=== PATIENT | male | born 1980 | race Caucasian/White ===

== ENCOUNTER 2019-06-14 09:42 | Outpatient (RCR) | payer OTHER, SELFPAY ==
--- NOTE | 2019-06-20 10:24 | PCPTNOTE ---
06/20/19- PT CALLED TO CX TODAY SECONDARY TO DR. ANTHONY -HM.
--- NOTE | 2019-08-14 13:14 | PCPTNOTE ---
08/14/19- pt did not show for apt on 08/09/19. -hm.
--- NOTE | 2019-08-24 14:25 | PCPTNOTE ---
patient called and cancelled appt due to weather. RO
--- NOTE | 2019-09-07 16:30 | PCPTNOTE ---
09/07/19 - patient was a no call/no show - JTF
== END 2019-08-29 23:59 | disposition home or self-care (01) ==
LOC: CHSPT 09:42
PROVIDERS: Visit Provider Specialist
DX: Z98.890 Other specified postprocedural states (principal)
CPT/HCPCS: 97016; 97110; 97161; 97530

== ENCOUNTER 2020-11-16 07:46 | Outpatient (CLI) | payer OTHER, SELFPAY ==
[2020-11-16 07:58] LABS: Basophils Absolute Auto 0.09 K/mm3 (0.00-0.10); Eosinophils Percent Auto 2.1 % (1.0-6.0); Hemoglobin 15.3 g/dL (14.0-18.0); Immature Granulocyte Absolute 0.05 K/mm3 (0.00-0.00); Immature Granulocyte Percent A 0.5 % (0.0-0.0); Lymphocytes Absolute Auto 3.24 K/mm3 (1.10-4.50); Lymphocytes Percent Auto 34.5 % (18.0-42.0); Mean Corpuscular HGB Conc 32.6 g/dL (32.0-36.0); Mean Corpuscular Hemoglobin 28.4 pg (27.0-31.0); Mean Corpuscular Volume 87.4 fL (78.0-102.0); Mean Platelet Volume 9.4 fl (8.7-11.0); Monocytes Absolute Auto 0.76 K/mm3 (0.10-0.90); Monocytes Percent Auto 8.1 % (2.0-11.0); Neutrophils Percent Auto 53.8 % (50.0-70.0); Platelet Count Result 286 K/mm3 (150-420); Red Blood Count 5.38 M/mm3 (4.70-6.10); Red Cell Distribution Width 12.2 % (11.6-14.4); White Blood Count 9.4 K/mm3 (4.8-10.8)
[2020-11-16 07:59] LABS: Add Urine Microscopic? YES; Appearance Urine Clear (Clear); Bilirubin Urine Negative (Negative); Blood Urine Negative (Negative); Color Urine Yellow (Yellow); Glucose Urine UA Trace (Negative); Ketones Urine Negative (Negative); Leukocyte Esterase Ur Negative LEU/UL (Negative); Nitrate Urine Negative (Negative); Protein Urine Negative (Negative); Specific Grav Ur >= 1.030 (1.010-1.020); Urobilinogen Urine 0.2 mg/dL (0.2-1.0)
[2020-11-16 08:11] LABS: Bacteria Urine None seen /hpf; Mucus Urine Few /lpf; RBC Urine None seen /hpf (0-2); WBC Urine None seen /hpf (0-3)
[2020-11-16 08:15] LABS: Creatinine Urine 166.25 mg/dL (40-278); MALB Creatinine Ratio 25.2 mg/g (0-30)
[2020-11-16 08:19] LABS: Hemoglobin A1C 7.8 % (<5.7)
[2020-11-16 08:30] LABS: Alanine Aminotransferase 43 U/L (16-63); Albumin Level 4.1 g/dL (3.4-5.0); Alkaline Phosphatase 57 U/L (46-116); Anion Gap 8 mmol/L (8-16); Aspartate Amino Transferase 20 U/L (15-37); Bilirubin,Total 0.4 mg/dL (0.00-1.00); Blood Urea Nitrogen 13 mg/dL (7-18); Calcium 9.3 mg/dL (8.5-10.1); Carbon Dioxide 29 mmol/L (21-32); Chloride 99 mmol/L (98-108); Cholesterol 179 mg/dL (0-200); Creatine Kinase 111 U/L (39-308); Estimated Glomerular Filt Rate > 60; Glucose 186 mg/dL (70-99); HDL Direct 40 mg/dL (40-60); LDL Cholesterol Calculated 100 mg/dL (<130); Osmolality Calculated 287 mOsm/kg (285-295); Potassium 4.4 mmol/L (3.5-5.1); Sodium 136 mmol/L (136-145); Total Protein 7.3 g/dL (6.4-8.2); Triglycerides 196 mg/dL (0-150)
== END 2020-11-16 07:47 | disposition home or self-care (01) ==
LOC: CHSLAB 07:49
PROVIDERS: PCP Internal Medicine; Visit Provider Internal Medicine
DX: E11.65 Type 2 diabetes mellitus with hyperglycemia (principal); E78.5 Hyperlipidemia, unspecified; I10 Essential (primary) hypertension
CPT/HCPCS: 36415; 80053; 80061; 81001; 82043; 82550; 83036; 85025

== ENCOUNTER 2021-05-15 10:41 | Outpatient (CLI) | payer OTHER, SELFPAY ==
[2021-05-15 10:54] LABS: Add Urine Microscopic? NO; Appearance Urine Clear (Clear); Bilirubin Urine Negative (Negative); Blood Urine Negative (Negative); Color Urine Yellow (Yellow); Glucose Urine UA Negative (Negative); Ketones Urine Negative (Negative); Leukocyte Esterase Ur Negative (Negative); Nitrate Urine Negative (Negative); Protein Urine Negative (Negative); Specific Grav Ur 1.025 (1.010-1.020); Urobilinogen Urine 0.2 mg/dL (0.2-1.0); pH Urine 6.5 (5.0-8.0)
[2021-05-15 11:08] LABS: MALB Creatinine Ratio 15.9 mg/g (0-30); Microalbumin Urine Random 40.6 mg/L
[2021-05-15 11:10] LABS: Hemoglobin A1C 7.5 % (<5.7)
[2021-05-15 11:33] LABS: Alanine Aminotransferase 33 U/L (16-63); Alkaline Phosphatase 54 U/L (46-116); Anion Gap 9 mmol/L (8-16); Aspartate Amino Transferase 17 U/L (15-37); Bilirubin,Total 0.4 mg/dL (0.00-1.00); Blood Urea Nitrogen 11 mg/dL (7-18); Calcium 9.6 mg/dL (8.5-10.1); Carbon Dioxide 28 mmol/L (21-32); Chloride 102 mmol/L (98-108); Cholesterol 180 mg/dL (0-200); Creatine Kinase 57 U/L (39-308); Estimated Glomerular Filt Rate > 60; Glucose 144 mg/dL (70-99); HDL Direct 37 mg/dL (40-60); LDL Cholesterol Calculated 118 mg/dL (<130); Osmolality Calculated 290 mOsm/kg (285-295); Potassium 4.4 mmol/L (3.5-5.1); Sodium 139 mmol/L (136-145); Total Protein 7.7 g/dL (6.4-8.2); Triglycerides 123 mg/dL (0-150)
== END 2021-05-15 10:42 | disposition home or self-care (01) ==
LOC: CHSLAB 10:42
PROVIDERS: PCP Internal Medicine; Visit Provider Internal Medicine
DX: E78.2 Mixed hyperlipidemia (principal); I10 Essential (primary) hypertension; E11.65 Type 2 diabetes mellitus with hyperglycemia
CPT/HCPCS: 36415; 80053; 80061; 81003; 82043; 82550; 83036

== ENCOUNTER 2021-09-05 10:09 | Outpatient (CLI) | payer OTHER, SELFPAY ==
--- NOTE | ~2021-09-05 | CT_ITS ---
EXAMINATION: CT sinus wo con DATE: 09/05/2021 10:27 INDICATION: Chronic sinusitis. TECHNIQUE: Computed tomography (CT) of the paranasal sinuses was performed without intravenous contra st. Iterative reconstruction technique was employed. The dose-length product was 343.37 mGy-cm. COMPARISON: None FINDINGS: The frontal and ethmoid sinuses are clear. There is mild mucosal thickening in right spheno id sinus. The maxillary sinuses are clear. There is rightward deviation of the nasal septum. There ar e bilateral Gilmar cells. The ostiomeatal units are patent. IMPRESSION: 1. Mild mucosal thickening in right sphenoid sinus. 2. Rightward deviation of the nasal septum. Reviewed, dictated and finalized at location E. [facility]
== END 2021-09-05 10:10 | disposition home or self-care (01) ==
LOC: CHSIMG 10:11
PROVIDERS: PCP Internal Medicine; Visit Provider Internal Medicine
DX: J32.9 Chronic sinusitis, unspecified (principal)
CPT/HCPCS: 70486

== ENCOUNTER 2021-12-25 09:50 | Outpatient (CLI) | payer OTHER, SELFPAY ==
[2021-12-25 10:03] LABS: Basophils Absolute Auto 0.06 K/mm3 (0.00-0.10); Basophils Percent Auto 0.7 % (0.0-1.0); Eosinophils Absolute Auto 0.12 K/mm3 (0.02-0.50); Eosinophils Percent Auto 1.5 % (1.0-6.0); Hematocrit 47.9 % (40.0-54.0); Immature Granulocyte Absolute 0.03 K/mm3 (0.00-0.00); Immature Granulocyte Percent A 0.4 % (0.0-0.0); Lymphocytes Absolute Auto 3.31 K/mm3 (1.10-4.50); Lymphocytes Percent Auto 40.6 % (18.0-42.0); Mean Corpuscular HGB Conc 33.4 g/dL (32.0-36.0); Mean Corpuscular Volume 86.9 fL (78.0-102.0); Mean Platelet Volume 9.6 fl (8.7-11.0); Monocytes Absolute Auto 0.77 K/mm3 (0.10-0.90); Monocytes Percent Auto 9.4 % (2.0-11.0); Neutrophils Absolute Auto 3.9 K/mm3 (1.7-7.2); Neutrophils Percent Auto 47.4 % (50.0-70.0); Platelet Count Result 243 K/mm3 (150-420); Red Blood Count 5.51 M/mm3 (4.70-6.10); Red Cell Distribution Width 12.7 % (11.6-14.4); White Blood Count 8.2 K/mm3 (4.8-10.8)
[2021-12-25 10:05] LABS: Add Urine Microscopic? YES; Appearance Urine Clear (Clear); Bilirubin Urine Negative (Negative); Blood Urine Negative (Negative); Color Urine Yellow (Yellow); Glucose Urine UA 3+ (Negative); Ketones Urine Negative (Negative); Leukocyte Esterase Ur Negative LEU/UL (Negative); Nitrate Urine Negative (Negative); Protein Urine Trace (Negative); Specific Grav Ur >= 1.030 (1.010-1.020); Urobilinogen Urine 0.2 mg/dL (0.2-1.0)
[2021-12-25 10:10] LABS: Bacteria Urine Trace /hpf; Mucus Urine Moderate /lpf; RBC Urine None seen /hpf (0-2); WBC Urine None seen /hpf (0-3)
[2021-12-25 10:13] LABS: Hemoglobin A1C 8.3 % (<5.7)
[2021-12-25 10:44] LABS: Alanine Aminotransferase 26 U/L (16-63); Albumin Level 4.2 g/dL (3.4-5.0); Alkaline Phosphatase 59 U/L (46-116); Anion Gap 4 mmol/L (8-16); Aspartate Amino Transferase 14 U/L (15-37); Bilirubin,Total 0.5 mg/dL (0.00-1.00); Blood Urea Nitrogen 16 mg/dL (7-18); Calcium 9.5 mg/dL (8.5-10.1); Carbon Dioxide 31 mmol/L (21-32); Chloride 100 mmol/L (98-108); Cholesterol 218 mg/dL (0-200); Creatine Kinase 85 U/L (39-308); Estimated Glomerular Filt Rate > 60; Glucose 235 mg/dL (70-99); HDL Direct 47 mg/dL (40-60); LDL Cholesterol Calculated 137 mg/dL (<130); Osmolality Calculated 289 mOsm/kg (285-295); Potassium 4.3 mmol/L (3.5-5.1); Sodium 135 mmol/L (136-145); Total Protein 7.6 g/dL (6.4-8.2); Triglycerides 172 mg/dL (0-150)
== END 2021-12-25 09:51 | disposition home or self-care (01) ==
LOC: CHSLAB 09:52
PROVIDERS: PCP Internal Medicine; Visit Provider Internal Medicine
DX: E11.42 Type 2 diabetes mellitus with diabetic polyneuropathy (principal); E78.2 Mixed hyperlipidemia; I10 Essential (primary) hypertension; R53.82 Chronic fatigue, unspecified
CPT/HCPCS: 36415; 80053; 80061; 81001; 82550; 83036; 85025

== ENCOUNTER 2022-04-14 16:12 | Outpatient (RCR) | payer OTHER, SELFPAY ==
--- NOTE | 2022-04-14 17:02 | PTOPEVAL1 ---
Assessment and note entered by JT File, PT Evaluation Information Assessment Status Evaluation Diagnosis neck pain, L triceps weakness Onset 04/07/22 Subjective Information patient reports he injured his neck nearly 20 years ago. he reports he jumped into a shallow water from a [place] and hit the bottom. he reports more recently he he has been having shooting pain down the L side of the neck. he reports this began getting severe a few weeks ago. he reports it has gotten significantly better since. he reports index finger and thumg are tingling, L triceps is weak, and shooting down the L neck and shoulder into the arm. he reports he has not been tested for carpal tunnel. he reports he had an MRI in the neck back in september. he reports he has increased pain with work as he has been in a [employer] hoe. he reports chiropractic has helped. Reported Pain Level Pain Score 3: Self Report Assessment PT Clinical Summary mr. saleh presents to skilled PT services for evaluation and treatment of pain in the neck and radicular symptoms in the L arm. he presents this date with signs and symptoms of DDD with L C7 radiculopathy. he would do well to attend and participate in skilled PT services to improve his objective/functional deficits and improve his functional activity performance to avoid surgery and improve his quality of life. Plan of Care Interventions Electrical Stimulation,Hot Pack/Cold Pack,Manual Therapy,Mechanical Traction,Patient/Caregiver Educati,Therapeutic Activities,Therapeutic Exercise PT Services Indicated Yes Treatment Frequency and 2x weekly for 12 visits Duration These treatments will address the objective and functional deficits as defined above. The patient will be advanced safely and appropriately in order for the patient to progress towards his/her prior level of function. Additional exercises will be introduced and as well as a comprehensive home exercise program upon discharge, if needed, ?to ensure carryover of functional gains achieved in the clinic. This treatment plan has been reviewed and agreement upon by the patient.
--- NOTE | 2022-06-24 17:42 | BUPTOPEVAL1 ---
Assessment and note entered by JT File, PT Evaluation Information Assessment Status Discharge Diagnosis neck pain, L triceps weakness Onset 04/07/22 Subjective Information patient reports he continues to have radicular symptoms in the L UE. he report shis tricep still feels weak, but is better than when he started therapy. he reports he is probably going to call the surgeon and have the neck surgery done. Reported Pain Level Pain Score 2: Self Report Assessment PT Clinical Summary mr. saleh presents to skilled PT for his 12th skilled therapy visit. as of this date, he continues to report paresthesias in the L UE down to the hand. despite his lack of change in MMT of the L triceps, patient is able to complete more repetitions and exercises for the triceps mm with greater resistance than at his initial evaluation. ultimately, he has not made enough significant progress to warrant continued therapy at this time , and would do well to return to MD for follow up and consult for potential surgical decompression. Plan of Care Interventions Electrical Stimulation,Hot Pack/Cold Pack,Manual Therapy,Mechanical Traction,Patient/Caregiver Educati,Therapeutic Activities,Therapeutic Exercise PT Services Indicated Yes Treatment Frequency and DC to independent HEP with MD follow up Duration These treatments will address the objective and functional deficits as defined above. The patient will be advanced safely and appropriately in order for the patient to progress towards his/her prior level of function. Additional exercises will be introduced and as well as a comprehensive home exercise program upon discharge, if needed, ?to ensure carryover of functional gains achieved in the clinic. This treatment plan has been reviewed and agreement upon by the patient.
== END 2022-06-17 14:43 | disposition home or self-care (01) ==
LOC: CHSPT 16:12
PROVIDERS: Visit Provider Neurological Surgery
DX: M50.222 Other cervical disc displacement at C5-C6 level (principal); M50.223 Other cervical disc displacement at C6-C7 level
CPT/HCPCS: 97012; 97110; 97140; 97161

== ENCOUNTER 2022-05-12 11:11 | Outpatient (CLI) | payer OTHER, SELFPAY ==
[2022-05-12 11:27] LABS: Add Urine Microscopic? YES; Appearance Urine Clear (Clear); Bilirubin Urine Negative (Negative); Blood Urine Negative (Negative); Color Urine Yellow (Yellow); Glucose Urine UA Negative (Negative); Ketones Urine Negative (Negative); Leukocyte Esterase Ur Negative LEU/UL (Negative); Nitrate Urine Negative (Negative); Protein Urine Trace (Negative); Specific Grav Ur 1.025 (1.010-1.020); Urobilinogen Urine 0.2 mg/dL (0.2-1.0)
[2022-05-12 11:28] LABS: Basophils Absolute Auto 0.05 K/mm3 (0.00-0.10); Basophils Percent Auto 0.6 % (0.0-1.0); Eosinophils Absolute Auto 0.12 K/mm3 (0.02-0.50); Eosinophils Percent Auto 1.4 % (1.0-6.0); Hematocrit 47.1 % (40.0-54.0); Hemoglobin 15.6 g/dL (14.0-18.0); Immature Granulocyte Absolute 0.02 K/mm3 (0.00-0.00); Immature Granulocyte Percent A 0.2 % (0.0-0.0); Lymphocytes Absolute Auto 2.57 K/mm3 (1.10-4.50); Lymphocytes Percent Auto 30.1 % (18.0-42.0); Mean Corpuscular HGB Conc 33.1 g/dL (32.0-36.0); Mean Corpuscular Hemoglobin 28.4 pg (27.0-31.0); Mean Corpuscular Volume 85.6 fL (78.0-102.0); Mean Platelet Volume 9.4 fl (8.7-11.0); Monocytes Absolute Auto 0.65 K/mm3 (0.10-0.90); Monocytes Percent Auto 7.6 % (2.0-11.0); Neutrophils Absolute Auto 5.1 K/mm3 (1.7-7.2); Neutrophils Percent Auto 60.1 % (50.0-70.0); Platelet Count Result 262 K/mm3 (150-420); Red Cell Distribution Width 11.9 % (11.6-14.4); White Blood Count 8.5 K/mm3 (4.8-10.8)
[2022-05-12 11:31] LABS: RBC Urine None seen /hpf (0-2); WBC Urine None seen /hpf (0-3)
[2022-05-12 11:32] LABS: Bacteria Urine Trace /hpf; Mucus Urine Moderate /lpf
[2022-05-12 11:36] LABS: Creatinine Urine 306.63 mg/dL (40-278); MALB Creatinine Ratio 27.1 mg/g (0-30); Microalbumin Urine Random 83.4 mg/L
[2022-05-12 11:38] LABS: Hemoglobin A1C 7.1 % (<5.7)
[2022-05-12 12:14] LABS: Alanine Aminotransferase 25 U/L (16-63); Albumin Level 4.2 g/dL (3.4-5.0); Alkaline Phosphatase 54 U/L (46-116); Anion Gap 10 mmol/L (8-16); Aspartate Amino Transferase 19 U/L (15-37); Bilirubin,Total 0.7 mg/dL (0.00-1.00); Blood Urea Nitrogen 12 mg/dL (7-18); Calcium 9.3 mg/dL (8.5-10.1); Carbon Dioxide 28 mmol/L (21-32); Chloride 102 mmol/L (98-108); Cholesterol 203 mg/dL (0-200); Creatine Kinase 87 U/L (39-308); Estimated Glomerular Filt Rate > 60; Glucose 183 mg/dL (70-99); HDL Direct 49 mg/dL (40-60); LDL Cholesterol Calculated 125 mg/dL (<130); Osmolality Calculated 294 mOsm/kg (285-295); Sodium 140 mmol/L (136-145); Total Protein 7.3 g/dL (6.4-8.2); Triglycerides 143 mg/dL (0-150)
== END 2022-05-12 11:12 | disposition home or self-care (01) ==
LOC: CHSLAB 11:14
PROVIDERS: PCP Internal Medicine; Visit Provider Internal Medicine
DX: E78.5 Hyperlipidemia, unspecified (principal); E11.65 Type 2 diabetes mellitus with hyperglycemia; I10 Essential (primary) hypertension; N39.0 Urinary tract infection, site not specified
CPT/HCPCS: 36415; 80053; 80061; 81001; 82043; 82550; 83036; 85025

== ENCOUNTER 2022-11-28 08:11 | Outpatient (CLI) | payer OTHER, SELFPAY ==
[2022-11-28 08:24] LABS: Appearance Urine Clear (Clear); Basophils Absolute Auto 0.08 K/mm3 (0.00-0.10); Bilirubin Urine Negative (Negative); Blood Urine 2+ (Negative); Color Urine Yellow (Yellow); Eosinophils Absolute Auto 0.12 K/mm3 (0.02-0.50); Eosinophils Percent Auto 1.5 % (1.0-6.0); Glucose Urine UA Negative (Negative); Hematocrit 43.5 % (40.0-54.0); Hemoglobin 14.6 g/dL (14.0-18.0); Immature Granulocyte Absolute 0.04 K/mm3 (0.00-0.00); Immature Granulocyte Percent A 0.5 % (0.0-0.0); Ketones Urine Negative (Negative); Leukocyte Esterase Ur Negative LEU/UL (Negative); Lymphocytes Absolute Auto 2.51 K/mm3 (1.10-4.50); Lymphocytes Percent Auto 31.7 % (18.0-42.0); Mean Corpuscular HGB Conc 33.6 g/dL (32.0-36.0); Mean Corpuscular Volume 86.5 fL (78.0-102.0); Mean Platelet Volume 9.3 fl (8.7-11.0); Monocytes Absolute Auto 0.58 K/mm3 (0.10-0.90); Monocytes Percent Auto 7.3 % (2.0-11.0); Neutrophils Absolute Auto 4.6 K/mm3 (1.7-7.2); Nitrate Urine Negative (Negative); Platelet Count Result 252 K/mm3 (150-420); Protein Urine Negative (Negative); Red Blood Count 5.03 M/mm3 (4.70-6.10); Red Cell Distribution Width 12.1 % (11.6-14.4); Specific Grav Ur >= 1.030 (1.010-1.020); Urobilinogen Urine 0.2 mg/dL (0.2-1.0); White Blood Count 7.9 K/mm3 (4.8-10.8)
[2022-11-28 08:30] LABS: Creatinine Urine 141.18 mg/dL (40-278); MALB Creatinine Ratio 13.3 mg/g (0-30); Microalbumin Urine Random 18.9 mg/L
[2022-11-28 08:32] LABS: Hemoglobin A1C 7.7 % (<5.7)
[2022-11-28 08:51] LABS: Add Urine Microscopic? YES; WBC Urine None seen /hpf (0-3)
[2022-11-28 08:52] LABS: Bacteria Urine Rare /hpf; Mucus Urine Few /lpf
[2022-11-28 09:23] LABS: Alanine Aminotransferase 33 U/L (16-63); Albumin Level 3.9 g/dL (3.4-5.0); Alkaline Phosphatase 45 U/L (46-116); Anion Gap 9 mmol/L (8-16); Aspartate Amino Transferase 19 U/L (15-37); Bilirubin,Total 0.4 mg/dL (0.00-1.00); Blood Urea Nitrogen 11 mg/dL (7-18); Calcium 9.2 mg/dL (8.5-10.1); Carbon Dioxide 27 mmol/L (21-32); Chloride 104 mmol/L (98-108); Cholesterol 175 mg/dL (0-200); Creatine Kinase 105 U/L (39-308); Estimated Glomerular Filt Rate > 60; Glucose 142 mg/dL (70-99); HDL Direct 44 mg/dL (40-60); LDL Cholesterol Calculated 109 mg/dL (<130); Osmolality Calculated 291 mOsm/kg (285-295); Potassium 4.2 mmol/L (3.5-5.1); Sodium 140 mmol/L (136-145); Total Protein 7.1 g/dL (6.4-8.2); Triglycerides 109 mg/dL (0-150)
== END 2022-11-28 08:12 | disposition home or self-care (01) ==
LOC: CHSLAB 08:12
PROVIDERS: PCP Internal Medicine; Visit Provider Internal Medicine
DX: E11.65 Type 2 diabetes mellitus with hyperglycemia (principal); E78.5 Hyperlipidemia, unspecified; I10 Essential (primary) hypertension; N39.0 Urinary tract infection, site not specified
CPT/HCPCS: 36415; 80053; 80061; 81001; 82043; 82550; 83036; 85025

== ENCOUNTER 2023-02-08 21:55 | Emergency (ER) | payer OTHER, SELFPAY ==
[2023-02-08 22:00] VITALS: BP 145/89; PULSE 102; RESP 20; TEMP 36.2; O2SAT 98
[2023-02-08 22:07] LABS: Glucose Point of Care 344 mg/dl (65-105)
--- NOTE | 2023-02-08 22:08 | ECG_ITS ---
Measurements Intervals [place] Rate: 89 P: 47 IA: 168 QRS: -29 QRSD: 95 T: 47 QT: 339 QTc: 415 Interpretive Statements SINUS RHYTHM BORDERLINE R WAVE PROGRESSION, ANTERIOR LEADS BORDERLINE ECG NO PREVIOUS ECG AVAILABLE FOR COMPARISON Electronically Signed On 02-09-2023 6:59:08 CDT by Kenton Jacome D.O.
--- NOTE | 2023-02-08 22:09 | ED.GENADULT ---
HPI - General Adult General Chief complaint: Unspecified Stated complaint: dehydration; blurred vision Time Seen by Provider: 02/08/23 22:06 History of Present Illness HPI narrative: Eliazar is a 43M with a PMH of diabetes that presented to the ED feeling weak and lightheaded. He was shoveling mud and lisa in the sun all day without water when around 5PMh he became weak and lightheaded. He took a break and went back at it then felt more tired and lightheaded. He is a diabetic and was concerned about a CVA so he came in. There is no slurred speech, weakness or facial droop as well as no CP, dyspnea, or syncope. Related Data Home Medications Medication Instructions Recorded Confirmed cephalexin 500 mg capsule 500 mg PO BID-TID 06/11/19 06/11/19 lisinopril 5 mg tablet 5 mg DAILY 06/11/19 06/11/19 metformin 750 mg tablet,extended 1,500 mg PO DAILY 06/11/19 06/11/19 release 24 hr pravastatin 20 mg tablet 20 mg PO DAILY 06/11/19 06/11/19 Allergies Allergy/AdvReac Type Severity Reaction Status Date / Time No Known Allergies Allergy Verified 02/08/23 22:00 Review of Systems Review of Systems: All systems reviewed & are unremarkable except as noted in HPI and below PMFSH Past Medical History Medical History Hyperlipidemia (12/03/17) Type 2 diabetes mellitus (12/03/17) Surgical History Surgical History History of surgery on right wrist Family History Family History Mother Diabetes mellitus Cerebrovascular accident Father Family history of lung cancer Family history of emphysema Social History Social History Smoking status: Current every day smoker Alcohol intake: current Exam Const: General: cooperative, healthy appearing and comfortable Nutritional Appearance: average body habitus Orientation/consciousness: oriented to person Limitations: no limitations HENMT: Head: normal to inspection, normocephalic and atraumatic Other: Dry mucous membranes Eyes: General: appearance normal, both eyes and all related structures Visual Pereira: normal visual pereira by confrontation Alignment and Position: alignment normal Neck: Neck: normal visual inspection Chest: Chest palpation & inspection: normal inspection of the chest Resp: Effort & Inspection: normal respiratory effort and able to speak in complete sentences Auscultation: clear to auscultation bilaterally Cardio: Rate: regular rate Rhythm: regular rhythm GI: Inspection: normal to inspection Skin: General skin exam: normal color and no rashes or lesions noted Neuro: General: oriented to person, oriented to place, oriented to time, patient oriented x3, gait normal and moves all extremities Psych: Appearance: grossly normal Mental Status: mental status grossly normal Course Course Emergency Course: Orderd labs, EKG and normal saline EKG showed NSR with a rate of 89, left axis deviation, but no ST elevation/depression or ectopy Vital Signs Vital signs: Vital Signs Temperature 97.2 F L 02/08/23 22:00 Pulse Rate 102 H 02/08/23 22:00 Respiratory Rate 20 02/08/23 22:00 Blood Pressure 145/89 H 02/08/23 22:00 Pulse Oximetry 98 02/08/23 22:00 Oxygen Delivery Room Air 02/08/23 22:00 Temperature 97.2 F L 02/08/23 22:00 Pulse Rate 86 02/08/23 23:01 Respiratory Rate 18 02/08/23 23:01 Blood Pressure 118/85 02/08/23 23:01 Pulse Oximetry 96 02/08/23 23:01 Oxygen Delivery Room Air 02/08/23 22:00 Medical Decision Making Vital Signs Vital Signs: Vital Signs Temperature 97.2 F L 02/08/23 22:00 Pulse Rate 102 H 02/08/23 22:00 Respiratory Rate 20 02/08/23 22:00 Blood Pressure 145/89 H 02/08/23 22:00 Pulse Oximetry 98 02/08/23 22:00 Oxygen Delivery Room Air
[2023-02-08] MEDS: SODIUM CHLORIDE 0.9% IV 1,000 ML 999 ML IV CONT ×2 (22:19→22:57)
[2023-02-08 22:29] LABS: PCO2 VBG 40.3 mmHg (42.0-48.0); PO2 VBG 37.2 mmHg (35.0-45.0); pH VBG 7.39 (7.33-7.43)
[2023-02-08 22:33] LABS: Basophils Absolute Auto 0.07 K/mm3 (0.00-0.10); Basophils Percent Auto 0.6 % (0.0-1.0); Eosinophils Absolute Auto 0.08 K/mm3 (0.02-0.50); Eosinophils Percent Auto 0.7 % (1.0-6.0); Hematocrit 45.4 % (40.0-54.0); Hemoglobin 15.1 g/dL (14.0-18.0); Immature Granulocyte Absolute 0.06 K/mm3 (0.00-0.00); Immature Granulocyte Percent A 0.5 % (0.0-0.0); Lymphocytes Absolute Auto 2.92 K/mm3 (1.10-4.50); Mean Corpuscular HGB Conc 33.3 g/dL (32.0-36.0); Mean Corpuscular Hemoglobin 29.4 pg (27.0-31.0); Mean Corpuscular Volume 88.3 fL (78.0-102.0); Mean Platelet Volume 9.8 fl (8.7-11.0); Monocytes Absolute Auto 0.88 K/mm3 (0.10-0.90); Monocytes Percent Auto 7.5 % (2.0-11.0); Neutrophils Absolute Auto 7.7 K/mm3 (1.7-7.2); Neutrophils Percent Auto 65.7 % (50.0-70.0); Platelet Count Result 287 K/mm3 (150-420); Red Blood Count 5.14 M/mm3 (4.70-6.10); Red Cell Distribution Width 12.2 % (11.6-14.4); White Blood Count 11.7 K/mm3 (4.8-10.8)
[2023-02-08 22:34] LABS: Device ROOM AIR
[2023-02-08 22:53] LABS: Alanine Aminotransferase 29 U/L (16-63); Alkaline Phosphatase 75 U/L (46-116); Anion Gap 12 mmol/L (8-16); Aspartate Amino Transferase 18 U/L (15-37); Bilirubin,Total 0.5 mg/dL (0.00-1.00); Blood Urea Nitrogen 17 mg/dL (7-18); Carbon Dioxide 25 mmol/L (21-32); Chloride 98 mmol/L (98-108); Estimated CRCL calculation 73 ml/min; Estimated Glomerular Filt Rate 43; Glucose 355 mg/dL (70-99); Magnesium 2.2 mg/dL (1.8-2.4); Osmolality Calculated 295 mOsm/kg (285-295); Sodium 135 mmol/L (136-145); Total Protein 8.1 g/dL (6.4-8.2)
[2023-02-08 23:01] VITALS: BP 118/85; PULSE 86; RESP 18; O2SAT 96
[2023-02-09 00:01] VITALS: BP 121/77; PULSE 88; RESP 18; O2SAT 98
== END 2023-02-09 00:05 | disposition home or self-care (01) ==
PROVIDERS: Emergency Provider Family Medicine; PCP Internal Medicine
DX: E86.0 Dehydration (principal); E11.9 Type 2 diabetes mellitus without complications; E78.5 Hyperlipidemia, unspecified; F17.200 Nicotine dependence, unspecified, uncomplicated
CPT/HCPCS: 36415; 80053; 82803; 82948; 83735; 84484; 85025; 93005; 96360; 96361; 99284; J7030

== ENCOUNTER 2023-08-26 07:46 | Outpatient (CLI) | payer OTHER, SELFPAY ==
[2023-08-26 08:05] LABS: Basophils Absolute Auto 0.08 K/mm3 (0.00-0.10); Basophils Percent Auto 1.1 % (0.0-1.0); Eosinophils Absolute Auto 0.14 K/mm3 (0.02-0.50); Eosinophils Percent Auto 1.8 % (1.0-6.0); Hematocrit 47.3 % (40.0-54.0); Immature Granulocyte Absolute 0.04 K/mm3 (0.00-0.00); Immature Granulocyte Percent A 0.5 % (0.0-0.0); Lymphocytes Absolute Auto 2.62 K/mm3 (1.10-4.50); Lymphocytes Percent Auto 34.6 % (18.0-42.0); Mean Corpuscular HGB Conc 33.8 g/dL (32.0-36.0); Mean Corpuscular Hemoglobin 28.7 pg (27.0-31.0); Mean Corpuscular Volume 84.9 fL (78.0-102.0); Mean Platelet Volume 9.1 fl (8.7-11.0); Monocytes Absolute Auto 0.65 K/mm3 (0.10-0.90); Monocytes Percent Auto 8.6 % (2.0-11.0); Neutrophils Absolute Auto 4.1 K/mm3 (1.7-7.2); Neutrophils Percent Auto 53.4 % (50.0-70.0); Platelet Count Result 249 K/mm3 (150-420); Red Blood Count 5.57 M/mm3 (4.70-6.10); White Blood Count 7.6 K/mm3 (4.8-10.8)
[2023-08-26 08:07] LABS: Appearance Urine Clear (Clear); Bilirubin Urine Negative (Negative); Blood Urine Negative (Negative); Color Urine Yellow (Yellow); Glucose Urine UA 3+ (Negative); Ketones Urine Negative (Negative); Leukocyte Esterase Ur Negative LEU/UL (Negative); Nitrate Urine Negative (Negative); Protein Urine Negative (Negative); Specific Grav Ur >= 1.030 (1.010-1.020); Urobilinogen Urine 0.2 mg/dL (0.2-1.0); pH Urine 5.5 (5.0-8.0)
[2023-08-26 08:12] LABS: Hemoglobin A1C 10.6 % (<5.7)
[2023-08-26 08:14] LABS: Add Urine Microscopic? NO; Bacteria Urine Rare /hpf; Mucus Urine Moderate /lpf; RBC Urine None seen /hpf (0-2); WBC Urine None seen /hpf (0-3)
[2023-08-26 08:18] LABS: Creatinine Urine 161.08 mg/dL (40-278); MALB Creatinine Ratio 18.7 mg/g (0-30); Microalbumin Urine Random 30.2 mg/L
[2023-08-26 08:46] LABS: Alanine Aminotransferase 25 U/L (16-63); Alkaline Phosphatase 61 U/L (46-116); Anion Gap 13 mmol/L (8-16); Aspartate Amino Transferase 14 U/L (15-37); Bilirubin,Total 0.5 mg/dL (0.00-1.00); Blood Urea Nitrogen 13 mg/dL (7-18); Calcium 9.7 mg/dL (8.5-10.1); Carbon Dioxide 27 mmol/L (21-32); Chloride 97 mmol/L (98-108); Cholesterol 212 mg/dL (0-200); Creatine Kinase 62 U/L (39-308); Estimated Glomerular Filt Rate > 60; Glucose 245 mg/dL (70-99); HDL Direct 49 mg/dL (40-60); LDL Cholesterol Calculated 129 mg/dL (<130); Osmolality Calculated 292 mOsm/kg (285-295); Potassium 4.3 mmol/L (3.5-5.1); Sodium 137 mmol/L (136-145); Total Protein 7.5 g/dL (6.4-8.2); Triglycerides 170 mg/dL (0-150)
[2023-08-30 17:27] LABS: Testosterone Free 71.1 pg/mL (35.0-155.0); Testosterone Total 323 ng/dL (250-1100)
== END 2023-08-26 07:47 | disposition home or self-care (01) ==
LOC: CHSLAB 07:48
PROVIDERS: PCP Internal Medicine; Visit Provider Internal Medicine
DX: N39.0 Urinary tract infection, site not specified (principal); E11.42 Type 2 diabetes mellitus with diabetic polyneuropathy; E78.2 Mixed hyperlipidemia; I10 Essential (primary) hypertension; R53.82 Chronic fatigue, unspecified; N52.9 Male erectile dysfunction, unspecified
CPT/HCPCS: 36415; 80053; 80061; 81003; 82043; 82550; 83036; 84402; 84403; 85025

== ENCOUNTER 2024-02-29 08:04 | Outpatient (CLI) | payer OTHER, SELFPAY ==
[2024-02-29 08:19] LABS: Hematocrit 44.6 % (40.0-54.0); Hemoglobin 15.4 g/dL (14.0-18.0); Mean Corpuscular HGB Conc 34.5 g/dL (32-36); Mean Corpuscular Hemoglobin 28.9 pg (27.0-31.0); Mean Corpuscular Volume 83.7 fL (78.0-102.0); Mean Platelet Volume 9.3 fl (8.7-11.0); Platelet Count Result 257 K/mm3 (150-420); Red Blood Count 5.33 M/mm3 (4.70-6.10); Red Cell Distribution Width 12.2 % (11.6-14.4); White Blood Count 12.3 K/mm3 (4.8-10.8)
[2024-02-29 08:33] LABS: Hemoglobin A1C 9.2 % (<5.7)
[2024-02-29 08:34] LABS: Appearance Urine Clear (Clear); Bilirubin Urine Negative (Negative); Blood Urine Trace-intact (Negative); Color Urine Light Yellow (Yellow); Glucose Urine UA 3+ (Negative); Ketones Urine 2+ (Negative); Leukocyte Esterase Ur Negative LEU/UL (Negative); Nitrate Urine Negative (Negative); Protein Urine 1+ (Negative); Specific Grav Ur 1.025 (1.010-1.020); Urobilinogen Urine 0.2 mg/dL (0.2-1.0)
[2024-02-29 08:36] LABS: Creatinine Urine 77.36 mg/dL (40-278)
[2024-02-29 08:37] LABS: Microalbumin Urine Random > 400.0 mg/L
[2024-02-29 08:46] LABS: Add Urine Microscopic? YES; RBC Urine None seen /hpf (0-2)
[2024-02-29 08:47] LABS: Bacteria Urine Rare /hpf; WBC Urine None seen /hpf (0-3)
[2024-02-29 09:04] LABS: Alanine Aminotransferase 45 U/L (16-63); Albumin Level 4.6 g/dL (3.4-5.0); Alkaline Phosphatase 60 U/L (46-116); Anion Gap 14 mmol/L (4-12); Aspartate Amino Transferase 30 U/L (15-37); Bilirubin,Total 0.4 mg/dL (0.00-1.00); Blood Urea Nitrogen 10 mg/dL (7-18); Calcium 10.2 mg/dL (8.5-10.1); Carbon Dioxide 25 mmol/L (21-32); Chloride 96 mmol/L (98-108); Cholesterol 223 mg/dL (0-200); Creatine Kinase 154 U/L (39-308); Estimated Glomerular Filt Rate > 60; Glucose 319 mg/dL (70-99); HDL Direct 53 mg/dL (40-60); LDL Cholesterol Calculated 141 mg/dL (<130); Osmolality Calculated 291 mOsm/kg (285-295); Potassium 3.8 mmol/L (3.5-5.1); Sodium 135 mmol/L (136-145); Total Protein 8.2 g/dL (6.4-8.2); Triglycerides 144 mg/dL (0-150)
== END 2024-02-29 08:05 | disposition home or self-care (01) ==
LOC: CHSLAB 08:07
PROVIDERS: PCP Internal Medicine; Visit Provider Internal Medicine
DX: E11.42 Type 2 diabetes mellitus with diabetic polyneuropathy (principal); E78.2 Mixed hyperlipidemia; I10 Essential (primary) hypertension; N39.0 Urinary tract infection, site not specified
CPT/HCPCS: 36415; 80053; 80061; 81001; 82043; 82550; 83036; 85027